=== PATIENT | female | born 1990 | race Caucasian/White ===

== ENCOUNTER 2016-02-28 15:02 | Outpatient (CLI) | payer OTHER | END 2016-02-28 15:03 | disposition home or self-care (01) | DX: Z36 Encounter for antenatal screening of mother (principal) ==

== ENCOUNTER 2016-03-19 12:25 | Outpatient (CLI) | payer OTHER | END 2016-03-19 12:26 | disposition home or self-care (01) | DX: Z34.82 Encounter for supervision of other normal pregnancy, second trimester (principal) ==

== ENCOUNTER 2016-05-02 10:15 | Outpatient (CLI) | payer OTHER | END 2016-05-02 10:16 | disposition home or self-care (01) | DX: Z36 Encounter for antenatal screening of mother (principal) ==

== ENCOUNTER 2016-07-08 16:49 | Outpatient (CLI) | payer OTHER | END 2016-07-08 16:50 | disposition home or self-care (01) | LOC: LAB.R 16:49 | PROVIDERS: ATTEND Obstetrics & Gynecology | DX: Z36 Encounter for antenatal screening of mother (principal) | CPT/HCPCS: 87081 ==

== ENCOUNTER 2016-07-28 11:35 | Outpatient (CLI) | payer OTHER ==
[2016-07-28 12:16] LABS: BASOPHILS % (AUTO) 0.3 %; EOSINOPHILS # (AUTO) 0.1 10^3/uL (0.0-0.7); EOSINOPHILS % (AUTO) 0.4 %; HCT - HEMATOCRIT 33.5 % (37.0-47.0); HGB - HEMOGLOBIN 11.5 g/dL (12.0-16.0); LYMPHOCYTES # (AUTO) 1.4 10^3/uL (1.5-3.5); LYMPHOCYTES % (AUTO) 12.4 %; MEAN CORPUSCULAR HEMOGLOBIN 30.9 pg (27.0-31.0); MEAN CORPUSCULAR HGB CONC 34.4 g/dL (32.0-36.0); MEAN PLATELET VOLUME 10.4 fL (7.9-10.8); MONOCYTES # (AUTO) 0.5 10^3/uL (0.0-1.0); MONOCYTES % (AUTO) 4.1 %; NEUTROPHILS # (AUTO) 9.6 10^3/uL (1.5-6.6); NEUTROPHILS % (AUTO) 82.8 %; NUCLEATED RED BLOOD CELLS AUTO 0.1 /100WBC; RED BLOOD COUNT 3.72 10^6/uL (4.20-5.40); RED CELL DISTRIBUTION WIDTH 15.1 % (12.0-15.0); UNCORRECTED WHITE BLOOD COUNT 11.6 x10^3/uL; WHITE BLOOD COUNT 11.6 x10^3/uL (4.8-10.8)
[2016-07-28 12:24] LABS: CREATININE 0.4 mg/dL (0.4-1.0)
[2016-07-28 12:28] LABS: URIC ACID 4.5 mg/dL (2.6-7.2)
[2016-07-28 13:11] VITALS: BP 118/66
== END 2016-07-28 13:40 | disposition home or self-care (01) ==
LOC: WFO 11:35 → OB 11:42 → WFO 13:40
PROVIDERS: ATTEND Obstetrics & Gynecology
DX: Z34.03 Encounter for supervision of normal first pregnancy, third trimester (principal)
CPT/HCPCS: 36415; 59025; 82565; 82570; 83615; 84156; 84450; 84550; 85025

== ENCOUNTER 2016-08-07 00:21 | Inpatient (IN) | payer OTHER ==
[2016-08-07 03:03] VITALS: BP 134/70
[2016-08-07] MEDS ORDERED: LACTATED RINGERS 1,000 ML IV SCH (03:15)
[2016-08-07] MEDS ORDERED: ONDANSETRON 4 MG/2 ML VIAL IVP PRN (03:15)
[2016-08-07] MEDS ORDERED: SODIUM CHLORIDE FLUSH 0.9% 10 ML SYRINGE IVP PRN (03:15)
[2016-08-07] MEDS ORDERED: fentaNYL 100 MCG/2 ML VIAL IVP PRN (03:15)
[2016-08-07 03:51] LABS: BILIRUBIN,URINE NEGATIVE (NEGATIVE); PH,URINE 6.5 PH (5.0-7.5)
[2016-08-07 03:54] LABS: UA w/ MICROSCOPIC CHARGE YES
[2016-08-07 03:58] LABS: BASOPHILS % (AUTO) 0.1 %; EOSINOPHILS % (AUTO) 0.1 %; HCT - HEMATOCRIT 33.7 % (37.0-47.0); HGB - HEMOGLOBIN 11.5 g/dL (12.0-16.0); LYMPHOCYTES # (AUTO) 1.2 10^3/uL (1.5-3.5); LYMPHOCYTES % (AUTO) 9.6 %; MEAN CORPUSCULAR HEMOGLOBIN 31.1 pg (27.0-31.0); MEAN CORPUSCULAR HGB CONC 34.3 g/dL (32.0-36.0); MEAN CORPUSCULAR VOLUME 90.7 fL (81.0-99.0); MEAN PLATELET VOLUME 10.5 fL (7.9-10.8); MONOCYTES # (AUTO) 0.4 10^3/uL (0.0-1.0); MONOCYTES % (AUTO) 3.3 %; NEUTROPHILS # (AUTO) 10.8 10^3/uL (1.5-6.6); NEUTROPHILS % (AUTO) 86.9 %; RED BLOOD COUNT 3.71 10^6/uL (4.20-5.40); RED CELL DISTRIBUTION WIDTH 14.9 % (12.0-15.0); UNCORRECTED WHITE BLOOD COUNT 12.4 x10^3/uL; WHITE BLOOD COUNT 12.4 x10^3/uL (4.8-10.8)
[2016-08-07 04:00] LABS: UR CULTURE IF IND NOT INDICATED; WBC,URINE 0-3 /HPF (0-5)
[2016-08-07] MEDS ORDERED: OXYTOCIN/LACTATED RINGERS 250 ML IV SCH (04:00)
[2016-08-07 04:07] LABS: ALBUMIN/GLOBULIN RATIO 0.9 (1.0-2.2); BILIRUBIN,TOTAL 0.2 mg/dL (0.2-1.0); CALCIUM 8.6 mg/dL (8.5-10.3); CREATININE 0.8 mg/dL (0.4-1.0); TOTAL PROTEIN 6.4 g/dL (6.7-8.2); URIC ACID 5.6 mg/dL (2.6-7.2)
--- NOTE | 2016-08-07 07:19 | HISTORY & PHYSICAL EXAMINATION ---
Admit History - Instructions [place]/Slash: -Left hand click circles element as positive or present. -Right hand click slashes element as negative or not present. - Visit Reason Visit Reason: Contractions (Pt C/O contractions q 3 min on admission, noted RUQ pain radiating to the back, also substernal pain. vandana MACKEY or scotoma.) - : 1 Parity: 0 Care: positive: [facility] (14 visits started at 9 weeks. Rubella nonimmmune. GBS negative, 50 gm 119) Smoking Status: Former smoker - Mother's Labs Mother's Blood Type: positive: A Mother's RH: positive: Positive GBS: positive: Group B Step Negative Rubella Status: positive: Non-immune Meds/Allgy - Allergies Allergies/Adverse Reactions: Allergies Allergy/AdvReac Type Severity Reaction Status Date / Time No Known Drug Allergies Allergy Verified 04/29/16 15:36 Physical - Abdominal Exam Vital Signs: Temp Pulse Resp BP Pulse Ox 36.8 C 73 14 134/70 H 100 08/07/16 02:40 08/07/16 02:40 08/07/16 02:40 08/07/16 02:40 08/07/16 02:40 Contraction Frequency (min/apart): q3-5 Contraction Intensity: positive: Moderate to strong Uterine Resting Tone: positive: Soft - Monitoring Heart Rate Baseline: 130 Strip Review: positive: Category I - Presentation Presentation: positive: Vertex - Vaginal Exam Dilation (in cm): 2.5 Effacement (%): 100 - Speculum Exam Speculum Exam Performed: positive: No - Other Notes Labor Progress Note/Additional Text: Contractions have spaced out with time. will ambulate consider pitocin. lamaze for pain control
--- NOTE | 2016-08-07 08:19 | PROVIDER PROGRESS NOTE ---
Labor Progress Note - Instructions [place]/Slash: -Left hand click circles element as positive or present. -Right hand click slashes element as negative or not present. - Vaginal Exam Dilation (in cm): 1 Effacement (%): 50% Station: positive: 1 Cervical Position: positive: Midposition - Labor Progress Note Labor Progress Note/Additional Text: not progresssing. discussed options. Home, tatum, cervidel. Pt wants discuss with spouce
--- NOTE | 2016-08-07 11:02 | PROVIDER PROGRESS NOTE ---
Labor Progress Note - Instructions [place]/Slash: -Left hand click circles element as positive or present. -Right hand click slashes element as negative or not present. - Uterine Monitoring Uterine Monitoring Mode: positive: External toco Contraction Frequency (min/apart): 5 Contraction Intensity: positive: Mild to moderate - Monitoring Monitor Mode: positive: External ultrasound Heart Rate Baseline: 130 Heart Rate Variability: positive: Moderate (6-25 bmp) Accelerations: positive: Present, 15x15 Decelerations: positive: None Strip Review: positive: Category I - Vaginal Exam Dilation (in cm): 1 Effacement (%): 50% Station: positive: -1 Cervical Position: positive: Midposition - Labor Progress Note Labor Progress Note/Additional Text: Cervix is unchanged. discussed options with pt and her . BP normal, Labs normal, reactive NST. Reviewed FM, SROM, Labor, MACKEY, [place]. Keep clinic appt.
--- NOTE | 2016-08-08 15:09 | HISTORY & PHYSICAL EXAMINATION ---
DATE OF ADMISSION: 08/07/2016 The patient reports right upper quadrant pain beginning this morning that has not resolved with Tylenol. She reports no headache or visual changes, and had been evaluated yesterday by Dr. Jean Baptiste. GENERAL: The patient lying comfortably in bed, in attendance. VITAL SIGNS: Temperature 97.5, pulse 91, blood pressure 116/76, respirations 18. HEENT: EOMI. Supple neck. No icterus. ABDOMEN: Soft, nontender, gravid. Mild right upper quadrant tenderness noted. Uterus vertex presentation. External monitor: No contractions are recorded, baseline 130 with accels and moderate variability. EXTERNAL GENITALIA: No lesions. VAGINA: No blood, discharge or fluid. LABORATORY: Show elevated urine creatinine protein ratio at 0.3. Urine essentially normal. Uric acid elevated for 5.9, AST 20, normal, LDH 160, normal. Hemoglobin 11.0, white count 11.5, platelets 169. ASSESSMENT: This is a term with RUQ pain and borderline P/Cr suggestive of evolving preeclampsia, though her blood pressure is not elevated. Given that she is 40 weeks and inducible cervix, advisability of induction was discussed. The patient is resistant to any intervention and wants more time to consider her options. Possible problems with preeclampsia/PIH were discussed such as seizure, liver involvement and even possible rupture. PLAN: Allow the patient and to determine their course of action. If necessary, will have a formal session of informed refusal for care. Addendum: She has chosen to go home and return in am for re evaluation and possible induction. Brochures on PIH & Preeclampsia given and reviewed. JOB #: [id number] EXT JOB #:[id number] MOLLY
== END 2016-08-07 11:10 | disposition home or self-care (01) | DRG 781 ==
LOC: WFO 00:21 → OB 00:22 → WFO 03:10 → OB 03:11
PROVIDERS: ADMIT Obstetrics & Gynecology; ATTEND Obstetrics & Gynecology
DX: O62.2 Other uterine inertia (principal); O14.93 Unspecified pre-eclampsia, third trimester; Z3A.40 40 weeks gestation of pregnancy
CPT/HCPCS: 36415; 80053; 81001; 81003; 83615; 84450; 84550; 85025; 87086; 99213

== ENCOUNTER 2016-08-08 09:17 | Outpatient (CLI) | payer OTHER ==
[2016-08-08 10:33] LABS: BASOPHILS # (AUTO) 0.1 10^3/uL (0.0-0.1); BASOPHILS % (AUTO) 0.5 %; EOSINOPHILS % (AUTO) 0.2 %; HCT - HEMATOCRIT 32.7 % (37.0-47.0); LYMPHOCYTES # (AUTO) 1.4 10^3/uL (1.5-3.5); LYMPHOCYTES % (AUTO) 12.5 %; MEAN CORPUSCULAR HEMOGLOBIN 30.4 pg (27.0-31.0); MEAN CORPUSCULAR HGB CONC 33.6 g/dL (32.0-36.0); MEAN CORPUSCULAR VOLUME 90.7 fL (81.0-99.0); MEAN PLATELET VOLUME 10.1 fL (7.9-10.8); MONOCYTES # (AUTO) 0.4 10^3/uL (0.0-1.0); MONOCYTES % (AUTO) 3.8 %; NEUTROPHILS # (AUTO) 9.4 10^3/uL (1.5-6.6); NUCLEATED RED BLOOD CELLS AUTO 0.1 /100WBC; RED BLOOD COUNT 3.61 10^6/uL (4.20-5.40); RED CELL DISTRIBUTION WIDTH 15.1 % (12.0-15.0); UNCORRECTED WHITE BLOOD COUNT 11.3 x10^3/uL; WHITE BLOOD COUNT 11.3 x10^3/uL (4.8-10.8)
[2016-08-08 10:47] LABS: URIC ACID 5.9 mg/dL (2.6-7.2)
[2016-08-08 11:26] LABS: BILIRUBIN,URINE NEGATIVE (NEGATIVE); PH,URINE 6.5 PH (5.0-7.5)
[2016-08-08 11:29] LABS: UA CHARGE (STRIP ONLY) YES; UR CULTURE IF IND NOT INDICATED
[2016-08-08 15:19] VITALS: BP 119/74
== END 2016-08-08 14:00 | disposition home or self-care (01) ==
LOC: WFO 09:17 → OB 09:19 → WFO 14:00
PROVIDERS: ATTEND Obstetrics & Gynecology
DX: O99.89 Other specified diseases and conditions complicating pregnancy, childbirth and the puerperium (principal); R10.11 Right upper quadrant pain; Z3A.40 40 weeks gestation of pregnancy
CPT/HCPCS: 36415; 81001; 81003; 82570; 83615; 84156; 84450; 84550; 85025; 87086; 99214

== ENCOUNTER 2016-08-09 09:31 | Outpatient (CLI) | payer OTHER ==
[2016-08-09 10:42] VITALS: BP 114/70
== END 2016-08-09 11:15 | disposition home or self-care (01) ==
LOC: WFO 09:31
PROVIDERS: ATTEND Obstetrics & Gynecology
DX: Z34.03 Encounter for supervision of normal first pregnancy, third trimester (principal)
CPT/HCPCS: 59025; 82570; 84156

== ENCOUNTER 2016-08-11 08:56 | Outpatient (CLI) | payer OTHER ==
[2016-08-11 09:29] VITALS: BP 119/73
== END 2016-08-11 09:45 | disposition home or self-care (01) ==
LOC: WFO 08:56 → OB 08:58 → WFO 09:45
PROVIDERS: ATTEND Obstetrics & Gynecology
DX: O99.89 Other specified diseases and conditions complicating pregnancy, childbirth and the puerperium (principal); R10.11 Right upper quadrant pain; Z3A.40 40 weeks gestation of pregnancy
CPT/HCPCS: 59025

== ENCOUNTER 2016-08-13 08:57 | Outpatient (CLI) | payer OTHER ==
[2016-08-13 09:19] VITALS: BP 126/65
== END 2016-08-13 09:35 | disposition home or self-care (01) ==
LOC: WFO 08:57 → OB 08:59 → WFO 09:35
PROVIDERS: ATTEND Obstetrics & Gynecology
DX: O48.0 Post-term pregnancy (principal); Z3A.41 41 weeks gestation of pregnancy
CPT/HCPCS: 59025

== ENCOUNTER 2016-08-15 07:30 | Inpatient (IN) | payer OTHER ==
[2016-08-15] MEDS ORDERED: SODIUM CHLORIDE FLUSH 0.9% 10 ML SYRINGE IVP PRN (20:50)
[2016-08-15] MEDS ORDERED: ONDANSETRON 4 MG/2 ML VIAL IVP PRN (20:50)
[2016-08-15] MEDS ORDERED: fentaNYL 100 MCG/2 ML VIAL IVP PRN (20:50)
[2016-08-15] MEDS ORDERED: DINOPROSTONE 10 MG SUPP VG ONE (20:53)
--- NOTE | 2016-08-15 20:56 | HISTORY & PHYSICAL EXAMINATION ---
Admit History - Instructions [place]/Slash: -Left hand click circles element as positive or present. -Right hand click slashes element as negative or not present. - : 1 Parity: 0 Premature: 0 Ectopic: 0 : 0 Care: positive: [facility] Risk/History: positive: None Complications This : positive: None Smoking Status: Never smoker - Mother's Labs Mother's Blood Type: positive: A Mother's RH: positive: Positive GBS: positive: Group B Step Negative Rubella Status: positive: Immune Meds/Allgy - Allergies Allergies/Adverse Reactions: Allergies Allergy/AdvReac Type Severity Reaction Status Date / Time No Known Drug Allergies Allergy Verified 04/29/16 15:36 Physical - Abdominal Exam Vital Signs: VS 36.7 BP 125/73 P74 Sat 100% Contraction Frequency (min/apart): infrequent Uterine Resting Tone: positive: Soft - Monitoring Heart Rate Baseline: 145 Strip Review: positive: Category I - Presentation Presentation: positive: Vertex - Vaginal Exam Membranes: positive: Membranes intact Dilation (in cm): 2 Effacement (%): 80% Station: positive: -3 Cervical Position: positive: Midposition - Speculum Exam Speculum Exam Performed: positive: No Findings: positive: Gross leak Plan for Labor - Plan For Labor Plan for Labor: Cervical ripening with cervidel. Pit in the AM
[2016-08-15 20:59] LABS: BASOPHILS % (AUTO) 0.4 %; EOSINOPHILS % (AUTO) 0.4 %; HCT - HEMATOCRIT 33.7 % (37.0-47.0); HGB - HEMOGLOBIN 11.3 g/dL (12.0-16.0); LYMPHOCYTES # (AUTO) 1.5 10^3/uL (1.5-3.5); LYMPHOCYTES % (AUTO) 13.6 %; MEAN CORPUSCULAR HEMOGLOBIN 30.7 pg (27.0-31.0); MEAN CORPUSCULAR HGB CONC 33.4 g/dL (32.0-36.0); MEAN CORPUSCULAR VOLUME 91.8 fL (81.0-99.0); MEAN PLATELET VOLUME 10.9 fL (7.9-10.8); MONOCYTES # (AUTO) 0.5 10^3/uL (0.0-1.0); MONOCYTES % (AUTO) 4.8 %; NEUTROPHILS # (AUTO) 8.9 10^3/uL (1.5-6.6); NEUTROPHILS % (AUTO) 80.8 %; NUCLEATED RED BLOOD CELLS AUTO 0.1 /100WBC; RED BLOOD COUNT 3.67 10^6/uL (4.20-5.40); RED CELL DISTRIBUTION WIDTH 15.2 % (12.0-15.0)
[2016-08-15] MEDS: LACTATED RINGERS 1,000 ML IV SCH (21:03)
[2016-08-15] MEDS ORDERED: DINOPROSTONE 10 MG SUPP VG SCH (21:06)
[2016-08-16] MEDS: LACTATED RINGERS 1,000 ML IV SCH ×4 (04:53→21:11)
[2016-08-16] MEDS ORDERED: fent/BUPIV 2 MCG/0.125% 250 ML EP ONE (08:41)
[2016-08-16] MEDS ORDERED: NALBUPHINE 20 MG/ML AMP IVP PRN (10:01)
[2016-08-16] MEDS ORDERED: LACTATED RINGERS 500 ML IV ONE (10:01)
[2016-08-16] MEDS ORDERED: fent/BUPIV 2 MCG/0.125% 250 ML EP PRN ×2 (10:01→17:14)
[2016-08-16] MEDS ORDERED: ONDANSETRON 4 MG/2 ML VIAL IVP PRN (10:01)
[2016-08-16] MEDS ORDERED: METOCLOPRAMIDE 10 MG/2 ML VIAL IVP PRN (10:01)
[2016-08-16] MEDS ORDERED: NALOXONE 0.4 MG/ML VIAL IVP PRN (10:01)
[2016-08-16] MEDS ORDERED: diphenhydrAMINE INJ 50 MG/ML VIAL IVP PRN (10:01)
[2016-08-16] MEDS ORDERED: ePHEDrine 50 MG/ML AMP IVP PRN (10:01)
[2016-08-16] MEDS ORDERED: LIDOCAINE 1% 50 ML MDV ONE (10:03)
[2016-08-16] MEDS ORDERED: MINERAL OIL LIGHT 10 ML MC ONE (10:03)
[2016-08-16] MEDS ORDERED: OXYTOCIN/LACTATED RINGERS 250 ML IV ONE (10:03)
--- NOTE | 2016-08-16 15:20 | PROVIDER PROGRESS NOTE ---
Labor Progress Note - Instructions [place]/Slash: -Left hand click circles element as positive or present. -Right hand click slashes element as negative or not present. - Uterine Monitoring Uterine Monitoring Mode: positive: External toco Contraction Frequency (min/apart): 2-5 Contraction Intensity: positive: Moderate to strong Uterine Resting Tone: positive: Soft - Monitoring Monitor Mode: positive: External ultrasound Heart Rate Baseline: 150 Heart Rate Variability: positive: Moderate (6-25 bmp) Accelerations: positive: Present, 15x15 Decelerations: positive: None Strip Review: positive: Category I - Vaginal Exam Dilation (in cm): 6 Effacement (%): 100 Station: positive: 0 Cervical Position: positive: Anterior (slow progress with excellent pain control. will augmet with pitocin)
[2016-08-16] MEDS: SODIUM CHLORIDE FLUSH 0.9% 10 ML SYRINGE IVP SCH ×3 (15:50→21:37)
[2016-08-16] MEDS ORDERED: OXYTOCIN/LACTATED RINGERS 250 ML IV SCH (16:00)
[2016-08-16] MEDS: ONDANSETRON 4 MG/2 ML VIAL IVP PRN (16:06)
--- NOTE | 2016-08-16 18:09 | PROVIDER PROGRESS NOTE ---
Labor Progress Note - Instructions [place]/Slash: -Left hand click circles element as positive or present. -Right hand click slashes element as negative or not present. - Uterine Monitoring Uterine Monitoring Mode: positive: External toco Contraction Frequency (min/apart): 2-5 Contraction Intensity: positive: Strong Uterine Resting Tone: positive: Soft - Monitoring Monitor Mode: positive: External ultrasound Heart Rate Baseline: 150 Heart Rate Variability: positive: Moderate (6-25 bmp) Accelerations: positive: Present, 15x15 (Slow progress. Pt is afbrile. Bladder drained, Pit aug, good paion control. will increase pit.)
--- NOTE | 2016-08-16 21:58 | PROVIDER PROGRESS NOTE ---
Labor Progress Note - Instructions [place]/Slash: -Left hand click circles element as positive or present. -Right hand click slashes element as negative or not present. - Uterine Monitoring Uterine Monitoring Mode: positive: External toco Contraction Frequency (min/apart): 2-5 Contraction Intensity: positive: Strong Uterine Resting Tone: positive: Soft - Monitoring Monitor Mode: positive: External ultrasound Heart Rate Baseline: 140 Heart Rate Variability: positive: Moderate (6-25 bmp) Accelerations: positive: Present, 15x15 - Vaginal Exam Dilation (in cm): 7 Effacement (%): 100 Station: positive: 1 Cervical Position: positive: Anterior (Pt has stalled at 7 cm. tatum in draining the bladder, excellent pain control notes low back pain. p tis on 7 units of pitocin IUPC placed. will increase pitocin.)
[2016-08-16] MEDS ORDERED: LIDOCAINE MPF 2%-EPI 1:200000 20 ML VIAL SUBQ ONE (22:03)
[2016-08-16] MEDS ORDERED: ROPIVACAINE 0.2% PF 20 ML AMPULE SUBQ ONE (22:03)
[2016-08-16] MEDS ORDERED: BUPIVACAINE 0.25% PF 10 ML VIAL SUBQ ONE (22:03)
[2016-08-16] MEDS ORDERED: fentaNYL 100 MCG/2 ML VIAL ONE (22:32)
--- NOTE | 2016-08-16 23:34 | PROVIDER PROGRESS NOTE ---
Labor Progress Note - Instructions [place]/Slash: -Left hand click circles element as positive or present. -Right hand click slashes element as negative or not present. - Uterine Monitoring Uterine Monitoring Mode: positive: IUPC : 2-3 Contraction Intensity: positive: Strong Uterine Resting Tone: positive: Soft (155 MVU) - Monitoring Monitor Mode: positive: External ultrasound Heart Rate Baseline: 140 Heart Rate Variability: positive: Moderate (6-25 bmp) Accelerations: positive: Present, 15x15 Decelerations: positive: None Strip Review: positive: Category I - Vaginal Exam Dilation (in cm): 7 Effacement (%): 100 Station: positive: 1 Cervical Position: positive: Anterior - Labor Progress Note Labor Progress Note/Additional Text: Pt is stalling. Pitocin at 8 units. 155 MVU. will increase by 2 units to improve strength
--- NOTE | 2016-08-17 01:27 | PROVIDER PROGRESS NOTE ---
Labor Progress Note - Instructions [place]/Slash: -Left hand click circles element as positive or present. -Right hand click slashes element as negative or not present. - Uterine Monitoring Uterine Monitoring Mode: positive: IUPC Contraction Frequency (min/apart): 2-3 Contraction Intensity: positive: Strong (250 MVU/10 min) Uterine Resting Tone: positive: Soft - Monitoring Monitor Mode: positive: External ultrasound Heart Rate Baseline: 140 Heart Rate Variability: positive: Moderate (6-25 bmp) Accelerations: positive: Present, 15x15 (spontanious and wiht scalp stim) Decelerations: positive: None Strip Review: positive: Category I - Vaginal Exam Dilation (in cm): 8 Effacement (%): 100 Station: positive: 1 Cervical Position: positive: Anterior - Labor Progress Note Labor Progress Note/Additional Text: P tis now having satisfactory contractions but pain control is poor. Anaesthesia is coming to redo block.
[2016-08-17] MEDS: ONDANSETRON 4 MG/2 ML VIAL IVP PRN (01:50)
[2016-08-17] MEDS: LACTATED RINGERS 1,000 ML IV SCH ×2 (02:17→04:03)
[2016-08-17] MEDS ORDERED: fentaNYL 100 MCG/2 ML VIAL ONE (03:03)
[2016-08-17] MEDS ORDERED: ceFAZolin 2 GM/50 ML 0 ML IV ONE (03:21)
[2016-08-17] MEDS ORDERED: ceFAZolin 1 GM VIAL ONE (03:21)
[2016-08-17] MEDS ORDERED: CITRIC ACID/SODIUM CITRATE 15 ML UDC PO ONE (03:22)
[2016-08-17] MEDS ORDERED: ceFAZolin 2 GM/50 ML 50 ML IV ONE (03:30)
--- NOTE | 2016-08-17 03:30 | PROVIDER PROGRESS NOTE ---
Labor Progress Note - Instructions [place]/Slash: -Left hand click circles element as positive or present. -Right hand click slashes element as negative or not present. - Uterine Monitoring Uterine Monitoring Mode: positive: IUPC Contraction Frequency (min/apart): 3 Contraction Intensity: positive: Strong (MVU 150) Uterine Resting Tone: positive: Soft - Monitoring Monitor Mode: positive: External ultrasound Heart Rate Baseline: 135 Heart Rate Variability: positive: Moderate (6-25 bmp) Accelerations: positive: Present, 15x15 Decelerations: positive: None Strip Review: positive: Category I - Vaginal Exam Dilation (in cm): 8 Effacement (%): swelling Station: positive: 1 Cervical Position: positive: Anterior - Labor Progress Note Labor Progress Note/Additional Text: Epidural not working 2 attempts to replace unsuccessful with pain control. head with molding. optimized process. Discussed with pt and spouse decision to precede with PLTC/S. R&B QAA.
[2016-08-17] MEDS ORDERED: LACTATED RINGERS 1,000 ML IV ONE ×3 (04:10→05:37)
[2016-08-17] MEDS ORDERED: OXYTOCIN 10 UNIT/ML VIAL IV ONE (04:53)
[2016-08-17] MEDS ORDERED: METOCLOPRAMIDE 10 MG TABLET PO ONE (04:53)
[2016-08-17] MEDS ORDERED: KETOROLAC 30 MG/ML VIAL IVP ONE (04:53)
[2016-08-17] MEDS ORDERED: ACETAMINOPHEN 1,000 MG/100 ML VIAL IV ONE (04:53)
--- NOTE | 2016-08-17 05:56 | OPERATIVE REPORT ---
Operative Report - General Admit Date: 08/15/16 Procedure Date: 08/17/16 Planned Procedure: Primary Low transverse C/S Pre-Op Diagnosis: Arrest of dilitation and decent Post Op Diagnosis: Macrosomic infant 10lb 1oz ROP. Bandolear cord - Procedure Note Primary Surgeon: Jonatan Secondary Surgeon: Asa Anesthesia Provider: Vania Anesthesia Technique: Spinal Estimated Blood Loss (in cc): 1,200 Complications: live male apga 8/9
[2016-08-17] MEDS ORDERED: diphenhydrAMINE INJ 50 MG/ML VIAL IVP PRN (06:08)
--- NOTE | 2016-08-17 06:16 | DELIVERY NOTE ---
Delivery Note - Instructions [place]/Slash: -Left hand click circles element as positive or present. -Right hand click slashes element as negative or not present. - Labor Labor: positive: Augmented by ARM, Augmented by oxytocin - Delivery Method Delivery Method: positive: Primary - Cervical Ripening Method Cervical Ripening Method: positive: Prostaglandin E2 - Presentation Presentation: positive: Vertex, ROP - right occiput posterior - Nuchal Cord Nuchal Cord: positive: None (bandolear cord) - Anesthetic Anesthetic Type: - Amniotic Fluid Description Amniotic Fluid Description: positive: Clear - Delivery Outcome Delivery Outcome: positive: Livebirth - : positive: Warmer used [place] sex: positive: Male - Cord Cord: positive: 3 vessels - Placenta Placenta: positive: Intact - Estimated Blood Loss Estimated Blood Loss (in cc): 1,200
[2016-08-17] MEDS ORDERED: LACTATED RINGERS 1,000 ML IV SCH (07:00)
[2016-08-17] MEDS: DOCUSATE SODIUM 100 MG CAPSULE PO SCH ×2 (11:28→20:46)
[2016-08-17] MEDS: SODIUM CHLORIDE FLUSH 0.9% 10 ML SYRINGE IVP SCH ×4 (11:28→23:07)
[2016-08-17] MEDS: KETOROLAC 30 MG/ML VIAL IV SCH ×3 (11:28→23:01)
[2016-08-17] MEDS: ACETAMINOPHEN 500 MG TABLET PO SCH ×2 (13:27→21:26)
[2016-08-17] MEDS: oxyCODONE 5 MG TABLET PO PRN ×2 (16:57→20:45)
[2016-08-18] MEDS: oxyCODONE 5 MG TABLET PO PRN ×7 (01:13→23:51)
[2016-08-18] MEDS: ACETAMINOPHEN 500 MG TABLET PO SCH ×3 (05:18→21:02)
[2016-08-18] MEDS: IBUPROFEN 800 MG TABLET PO SCH ×4 (05:53→23:51)
[2016-08-18 05:54] LABS: BASOPHILS % (AUTO) 0.1 %; EOSINOPHILS % (AUTO) 0.4 %; HCT - HEMATOCRIT 25.7 % (37.0-47.0); HGB - HEMOGLOBIN 8.6 g/dL (12.0-16.0); LYMPHOCYTES # (AUTO) 1.3 10^3/uL (1.5-3.5); LYMPHOCYTES % (AUTO) 13.1 %; MEAN CORPUSCULAR HGB CONC 33.5 g/dL (32.0-36.0); MEAN CORPUSCULAR VOLUME 92.3 fL (81.0-99.0); MEAN PLATELET VOLUME 10.1 fL (7.9-10.8); MONOCYTES # (AUTO) 0.5 10^3/uL (0.0-1.0); MONOCYTES % (AUTO) 4.7 %; NEUTROPHILS # (AUTO) 8.4 10^3/uL (1.5-6.6); NEUTROPHILS % (AUTO) 81.7 %; RED BLOOD COUNT 2.79 10^6/uL (4.20-5.40); RED CELL DISTRIBUTION WIDTH 16.2 % (12.0-15.0); UNCORRECTED WHITE BLOOD COUNT 10.2 x10^3/uL; WHITE BLOOD COUNT 10.2 x10^3/uL (4.8-10.8)
--- NOTE | 2016-08-18 08:34 | OPERATIVE REPORT ---
DATE OF SURGERY: 08/17/2016 00:00:00 PREOPERATIVE DIAGNOSES 1. Term Cyesis. 2. Arrested dilatation and descent. POSTOPERATIVE DIAGNOSES 1. Term Cyesis. 2. Arrested dilatation and descent. 3. Macrosomic weighing 10 pounds 1 ounce, right occiput posterior, bandolier cord. PROCEDURE: Primary low transverse section. PROCEDURE: Primary low transverse section. SURGEON: Yariel Cheung MD PRESS MANAGER: Jayson Bray MD ANESTHESIA: Spinal; Lydia Caro MD ESTIMATED BLOOD LOSS: 1200 mL. FINDINGS: Upon entering the abdominal cavity, the infant was noted to be deep in the pelvis. The infant was noted to be right occiput posterior, clear amniotic fluid was encountered at the time of delivery. PROCEDURE: Following adequate spinal anesthesia, the patient was placed in a supine position and rolled on the right hip. At this point she was prepped and draped in the usual fashion. A timeout was performed, at which time the patient was identified as well as the procedure. A pjanensteal incision was accomplished using a #10 blade and electrocautery. The fascia was scored with a #10 blade, and the incision was carried laterally using bandage scissors. Then the fascia was grasped with Kochers and bluntly and sharply dissected free from the rectus abdominus. The diastasis was then entered utilizing hemostat, and this was carried down to the peritoneum, which was entered bluntly. The incision was carried superiorly and inferiorly. Care was taken to avoid any injury to bowel or bladder. A bladder flap was then developed using both blunt and sharp dissection. A low transverse uterine incision was accomplished using a #10 blade and bandage scissors. The head of the infant was noted to be right occiput posterior. Then the head was lifted out of the pelvis. The remainder of the infant was expressed. There was a bandolier cord noted at the time of delivery. The amniotic fluid was also noted to be clear. The cord was doubly clamped, divided, and the was handed to the nursery team that was standing by. Cord blood samples were obtained. Following this, the placenta was manually delivered. The uterus was exteriorized, wrapped in moist lap, cleansed the internal portion with a dry lap. The incision was then closed using running locking suture of #0 Vicryl with an imbricating layer of #0 Vicryl. Good hemostasis was observed at this point. A rolled moist lap was then placed over the incision , the uterus was tipped forward, and the cul-de-sac was irrigated clear of any clots. The uterus was then delivered back into the abdominal cavity, and the gutters were likewise irrigated. The incision itself was inspected; no bleeding was noted. At this point, the peritoneum was closed using 2-0 Vicryl and then the rectus reapproximated with 2-0 Vicryl. The fascia was closed utilizing 0 PDS in a running suture. The subcutaneous tissue was closed utilizing interrupted sutures of 2-0 Vicryl. The incision itself was closed using Monocryl subcuticular, then Mastisol with Steri-Strips was applied. A wound VAC was then applied on top of this. Good suction was observed at this time. The uterus was then expressed for any further clots, and none were noted. At this point the procedure was terminated. The patient was taken to recovery in stable condition. [id number] counts were correct. JOB #: [id number] EXT JOB #:[id number] MOLLY
--- NOTE | 2016-08-18 08:38 | PROVIDER PROGRESS NOTE ---
Subjective - General Admit Date: 08/15/16 Procedure Date: 08/17/16 Post Op Days: 1 Procedure Performed: P LTC/S - Review of Systems Wound/Incisions: positive: Dressing dry and intact (Wound vac functioning) General: positive: No symptoms (Pain 1-3/10), Night sweats Pulmonary: positive: No symptoms Gastrointestinal: positive: No symptoms, Flatus. negative: Nausea, Vomiting Genitourinary: positive: No symptoms. negative: Retention Objective - Patient Data Reviewed Vital Signs: Yes Vital Signs: Vital Signs x48h Temp Pulse Resp Pulse Ox 08/18/16 04:40 36.7 C 71 16 108 H Weight: Weight 08/16/16 08/17/16 08/18/16 23:59 23:59 23:59 Weight (kg) 106.141 kg Intake & Output: Intake and Output Totals x24h 08/16/16 08/17/16 08/18/16 23:59 23:59 23:59 Intake Total 3598 500 Output Total 1050 1350 900 Balance 8497 -850 900 - Lab Results Lab Results: 08/18/16 05:35 Other Lab Results: Lab Results x24hrs 08/18/16 Range/Units 05:35 WBC 10.2 (4.8-10.8) x10^3/uL RBC 2.79 L (4.20-5.40) 10^6/uL Hgb 8.6 L (12.0-16.0) g/dL Hct 25.7 L (37.0-47.0) % MCV 92.3 (81.0-99.0) fL MCH 31.0 (27.0-31.0) pg MCHC 33.5 (32.0-36.0) g/dL RDW 16.2 H (12.0-15.0) % Plt Count 106 L (130-450) 10^3/uL MPV 10.1 (7.9-10.8) fL Neut # 8.4 H (1.5-6.6) 10^3/uL Lymph # 1.3 L (1.5-3.5) 10^3/uL [place] # 0.5 (0.0-1.0) 10^3/uL Eos # 0.0 (0.0-0.7) 10^3/uL Baso # 0.0 (0.0-0.1) 10^3/uL Absolute Nucleated RBC 0.00 x10^3/uL Nucleated RBCs 0.0 /100WBC - Current Medications Current Medications: Current Medications Generic Name Dose Route Start Last Admin Trade Name Freq PRN Reason Stop Dose Admin Acetaminophen 1,000 mg 08/17/16 07:00 08/18/16 05:18 Tylenol PO 1,000 mg Q8H GLEN Administration Docusate Sodium 100 mg 08/17/16 09:00 08/17/16 20:46 Colace 100mg Capsule PO 100 mg BID GLEN Administration Fentanyl 50 mcg 08/15/16 20:50 08/16/16 07:09 Fentanyl IVP 50 mcg Q1H PRN Administration PAIN Oxytocin/Lactated Ringer's 250 mls @ 1 mls/hr 08/16/16 16:00 08/16/16 18:55 Pitocin/Lactated Ringers IV 4 milliunit/min TITR GLEN Titration 1 MILLIUNIT/MIN Ibuprofen 800 mg 08/18/16 06:00 08/18/16 05:53 Motrin PO 800 mg Q6H GLEN Administration Ondansetron HCl 4 mg 08/16/16 15:36 08/17/16 01:50 Zofran Inj IVP 4 mg Q4HR PRN Administration Nausea / Vomiting Oxycodone HCl 5 mg 08/17/16 06:08 08/18/16 05:15 Roxicodone PO 5 mg Q4HR PRN Administration PAIN Sodium Chloride 10 ml 08/15/16 20:50 08/17/16 01:50 Normal Saline Flush 0.9% IVP 10 ml PRN PRN Administration NEEDED PER PROVIDER ORDERS Sodium Chloride 10 ml 08/15/16 22:00 08/17/16 23:07 Normal Saline Flush 0.9% IVP 10 ml Q8HR GLEN Administration - Physical Exam Wound/Incisions: positive: Dressing dry and intact Eyes Bilateral: positive: Normal inspection, PERRL Respiratory: positive: Chest non-tender, No respiratory distress, Breath sounds nml Cardiovascular: positive: Regular rate & rhythm, No murmur, No gallop Abdomen: positive: Non-tender, Nml bowel sounds, Mass (U-1) Extremities: negative: Calf tenderness, Andrae's sign/cords Impression/Plan - Problem List Problem List: Pt is doing, voiding regular diet
[2016-08-18] MEDS: DOCUSATE SODIUM 100 MG CAPSULE PO SCH ×2 (09:15→21:02)
[2016-08-19] MEDS: oxyCODONE 5 MG TABLET PO PRN ×4 (04:06→16:25)
[2016-08-19] MEDS: ACETAMINOPHEN 500 MG TABLET PO SCH ×2 (05:39→13:05)
[2016-08-19] MEDS: IBUPROFEN 800 MG TABLET PO SCH ×3 (05:39→17:31)
[2016-08-19] MEDS: DOCUSATE SODIUM 100 MG CAPSULE PO SCH (08:17)
--- NOTE | 2016-08-19 10:16 | PROVIDER PROGRESS NOTE ---
Subjective - Prog Note Date Prog Note Date: 08/19/16 Prog Note Time: 10:13 - Subjective Pt reports feeling: Improved Subjective: Patient in bed, holding baby. at bedside. Baby latching well. Ambulating and tolerating a regular diet. Normal lochia. Desires to go home. Current Medications - Current Medications Current Medications: Ibuprofen, acetaminophen, oxycodone Objective - Vital Signs/Intake & Output Reviewed Vital Signs: Yes Vital Signs: Vital Signs x48h Temp Pulse Resp BP Pulse Ox 08/19/16 08:03 98.2 F 74 16 129/81 H 98 08/19/16 04:09 98.1 F 68 22 111/67 100 Intake & Output: Intake & Output 08/16/16 08/17/16 08/18/16 08/19/16 23:59 23:59 23:59 23:59 Intake Total 3598 500 Output Total 1050 1350 900 Balance 6065 -663 -900 - Objective General Appearance: positive: No acute distress Eyes Bilateral: positive: Normal inspection Abdomen: positive: Non-tender (Wound vac in place and working well.) - Lab Results Fish Bones: 08/18/16 05:35 Assessment/Plan - Problem List (1) delivery delivered Impression: 25 yo S/p primary CD 08/17/2016 for failure to dilate and descend Normal recovery Discharge to home Has filled home Rx for ibuprofen, oxycodone Call tomorrow for an appointment to remove of Prevena wound vac Thursday Call for worsening fevers, chills, abdominal pain or vaginal bleeding. Discharge Plan Disposition: Home, Self Care Condition: Good Prescriptions: Docusate Sodium 250Mg Capsule [Colace 250Mg Capsule] 100 mg PO BID PRN #30 capsule PRN Reason: Constipation Ferrous Sulfate 324 mg PO DAILY #30 tablet. Ibuprofen [Motrin] 800 mg PO Q8H PRN #30 tablet PRN Reason: PAIN &/OR FEVER oxyCODONE/ACET 5/325 [Percocet 5 mg/325 mg] 1 each PO Q4-6H #20 tablet Diet: Regular Activity Restrictions: No lifting >12 lbs Shower Restrictions: No Driving Restrictions: Yes (No driving for 2 weeks) Weight Bearing: Full Weight No Smoking: If you smoke, Please STOP! Call for help.
[2016-08-19 17:43] VITALS: BP 130/81
[2016-08-19] MEDS ORDERED: HYDROCORTISONE 1% CREAM 28 GM TUBE TOP SCH ×2 (18:00)
--- NOTE | 2016-08-20 00:05 | Labor Flowsheet ---
Labor Flowsheet Datetime Report Generated by CPN: 08/20/2016 00:04 Datetime: 08/19/2016 17:41 VITAL SIGNS NBP Sys/Sally/Mean (mmHg): 130 : 81 : 92 Pulse: 84 Datetime: 08/18/2016 20:04 SpO2 (%): 99 Datetime: 08/17/2016 04:36 Stage of : Datetime: 08/17/2016 04:25 ASSESSMENT A Monitor Mode: Doppler FHR Baseline Rate : 154 Datetime: 08/17/2016 04:10 Communication Comments: OR team in hospital. To OR via bed with circulating RN and Dr. Caro. Datetime: 08/17/2016 04:04 LaborFlag: Labor Datetime: 08/17/2016 04:00 UTERINE ACTIVITY Monitor Mode: Internal Frequency (min): 2-5 Pattern: Normal: <= 5 Contractions in 10 Minutes Resting Tone IUP (mmHg): 25 Intensity IUP (mmHg): 40-60 FHR Baseline Changes: No Baseline Change Variability: Moderate 6-25 bpm Accelerations: 10X10 Decelerations: None Category: Category I PAIN Pain Scale: 10 Pain Presence: Constant Pain Location: Right Hip Pain Goal: 4 Pain Relief Measures: Epidural Given Datetime: 08/17/2016 03:25 Medication Comments: Epidural infusion stopped per Dr Caro's order. Datetime: 08/17/2016 03:15 TEACHING Instructional Method: Verbal; Written; Patient Instructed; Family/Support Person Instructed; Verbal ized Understanding Plan of Care: Plan of Care Discussed; C/S Delivery Datetime: 08/17/2016 03:14 Patient Care Comments: concentrated urine, 60ml Datetime: 08/17/2016 03:11 COMMUNICATION Communication: RN at Bedside; Provider at Bedside Provider Notified (Name): Giem Notification Reason: Status Update; Status; Labor Status; Uterine Activity; Pain Datetime: 08/17/2016 03:09 MEDICATIONS Pitocin (milliunits): Discontinued Datetime: 08/17/2016 03:05 Analgesics/Sedatives: Fentanyl (mcg) @ (Annotations: 50mcg given for 10/10 pain; no relief from epi dural; still in pain on R hip/R groin/R lower back. Dr Caro aware. ) Datetime: 08/17/2016 03:00 Duration (sec): 60-100 Pitocin Checklist: At Least 1 Acceleration of 15 bpm x 15 Seconds in 30 Minutes or Adequate Variabi lity; No More than 1 Late Deceleration Occurred in Past 30 Minutes; No More than 2 Variable Decelerat ions > 60 Seconds in Duration and decreasing >60 bpm in 30 minutes; No More than 5 Uterine Contractio ns in 10 Minutes for any 20 Minute Interval; IUPC Resting Tone less than 25 mmHg VAGINAL EXAM Dilatation (cm): 7.0 (Annotations: 2cm on L side, 1cm on R side, molding, not well applied cervix. ) Effacement (%): 90 (Annotations: Some edema on mom's L side of cervix. ) Station: 0 Exam by: RNRoselyn Mcclain Anesthesia Interview: E Anesthesia Comments: Still c/o unretractable pain on R lower side of abdomen, hip, back. Dr Caro aw are. Legs are heavy; unable to move self from side to side or up in bed. Datetime: 08/17/2016 02:50 Temperature (C): 36.9 Datetime: 08/17/2016 02:43 Contraction Comments: IUPC flushed Datetime: 08/17/2016 02:39 Patient Position/Activity: Left Lateral Datetime: 08/17/2016 02:38 Vaginal Exam Comments: molding Datetime: 08/17/2016 02:27 Epidural Positioning: Sitting Epidural Procedure: Test Dose Datetime: 08/17/2016 02:00 Respirations: 24 Datetime: 08/17/2016 01:46 Antiemetics/Antacids: Zofran (mg) @ 4 Datetime: 08/17/2016 01:18 Pain Assessment Comments: Dr Caro called and requested to come see pt and evaluate epidural. Datetime: 08/17/2016 01:15 Pain Coping: Requesting Pain Medication or Epidural; Crying Comfort Measures: Breathing/Relaxation; Coaching; Family Support Datetime: 08/17/2016 01:00 [place] Units (mmHg): 212 ANESTHESIA Anesthesia Plans: Epidural Anesthesia Level Check: T8- Ribs Datetime: 08/17/2016 00:00 Pain Type: Pressure Datetime: 08/16/2016 23:31 MONTEVIDEO UNITS (Computed) Contractions in Ten Minutes: 4 Oxygen Method: Room Air Datetime: 08/16/2016 23:18 Provider Reviewed Strip: Yes Datetime: 08/16/2016 22:16 PROCEDURE TIME OUT Procedure Type: 2205 Epidural Procedure Other: Redose Datetime: 08/16/2016 21:31 Monitor Interventions for UA: IUPC Inserted Procedures: Sterile Vag Exam Datetime: 08/16/2016 21:30 Quality: Moderate Resting Tone (Palpate): Relaxed Datetime: 08/16/2016 20:00 Temperature Route: Oral Datetime: 08/16/2016 19:45 Labor/Induction: Augmentation Pain Management: Epidural Datetime: 08/16/2016 19:30 MATERNAL ASSESSMENT Level of Consciousness: Fully Conscious DTR's/Clonus: DTRs 1+ Headache: Denies Breath Sounds, Left: Clear and Equal Breath Sounds, Right: Clear and Equal Nausea/Vomiting: Denies RUQ Epigastric Pain: Denies Datetime: 08/16/2016 18:02 Vaginal Bleeding: Normal Show Cervix, Consistency: Soft Cervix, Position: Posterior Datetime: 08/16/2016 15:19 PATIENT CARE IV/Blood Work: IV Bolus Given ml @ 500 Datetime: 08/16/2016 15:12 I/O Interventions: Rosas Cath Inserted Datetime: 08/16/2016 12:18 Membrane Status: Ruptured Membranes Rupture Method: Artificial Amniotic Fluid Color: Clear Amniotic Fluid Amount: Scant Datetime: 08/16/2016 08:36 Procedure Verify: Correct Patient Identity; Accurate Procedure Consent Form; Agreement on Procedure to be Done; Correct Patient Position; Safety Precautions Based on Patient History or Medication Use Datetime: 08/16/2016 08:30 Comments: FHR 140s while epidural being placed Datetime: 08/16/2016 06:15 Medications: Cervical Ripening Datetime: 08/16/2016 05:41 Monitor Interventions for FHR: Ultrasound Adjusted Datetime: 08/16/2016 03:59 Hygiene: Shower Datetime: 08/15/2016 21:30 Teaching Comments: IVF Datetime: 08/15/2016 20:40 Cervical Ripening Agents: Cervidil Datetime: 08/15/2016 20:30 Unit Routine: Call Levy
--- NOTE | 2016-08-20 07:20 | DISCHARGE SUMMARY ---
DATE OF ADMISSION: 08/15/2016 DATE OF DISCHARGE: 08/19/2016 DIAGNOSES ON ADMISSION 1. A 25-year-old, G1, P0 with a 41-week 2-day intrauterine . 2. Cervix remote from delivery. 3. Gestational hypertension. DIAGNOSES ON DISCHARGE 1. A 25-year-old, G1, P1-0-0-1 status post primary delivery on 2016 secondary to failure to dilate and descend. 2. Normal recovery. BRIEF HISTORY: This is a patient at [facility] whom we have been seeing throughout her entire course. Patient's has been complicated by gestational hypertension especially in the face of right upper quadrant pain. Preeclampsia was ruled out at 38 weeks' gestation. Patient was admitted to the hospital on 08/15/2016 for post dates cervical ripening. She was given Cervidil and later Pitocin for augmentation. Patient was noted to have slow progress in her labor. Patient's progress only got to 8 cm dilatation, 100% effacement, and +1 station. Due to failure to dilate and descend, patient underwent a primary delivery. She delivered a viable male infant at 0436 hours with Apgars of 8 and 9 at one and five minutes respectively. He weighed 4552 grams or 10 pounds 0.6 ounces. EBL was 1200 mL. Patient's postoperative course has been unremarkable. She is ambulating and tolerating a regular diet. She is urinating without difficulty and her pain is controlled with oral medications including ibuprofen, Tylenol, and oxycodone. Patient has a wound VAC, which is working quite nicely. Patient will be discharged to home on postoperative day #2, 08/19/2016. Patient has been given instructions to take her acetaminophen and ibuprofen primarily, with oxygen for breakthrough pain. She is not to engage in any heavy lifting, specifically anything more than the baby's weight. Showering is fine at this point, but I would hesitate to let her take a bath at this point in time. I have given patient instructions to call should she have any worsens fevers, chills, abdominal pain, or vaginal bleeding. She is to see us at [facility] in 2 weeks for an incision check. With respect to the Prevena wound VAC, I would like her to call our office tomorrow to make an appointment for removal on Thursday. If, however, this is not amenable to her, she may return on Thursday, and I will be director of retention and happy to remove it for her at that time. JOB #: [id number] EXT JOB #:[id number] MOLLY
== END 2016-08-19 18:20 | disposition home or self-care (01) | DRG 766 ==
LOC: OB 19:02 → OBSVTOIN 19:10
PROVIDERS: ADMIT Obstetrics & Gynecology; ATTEND Obstetrics & Gynecology
PROC: 10D00Z1 Extraction of Products of Conception, Low, Open Approach (ICD-10-PCS; principal; 2016-08-15)
PROC: 3E0P7GC Introduction of Other Therapeutic Substance into Female Reproductive, Via Natural or Artificial Opening (ICD-10-PCS; 2016-08-15)
PROC: 10907ZC Drainage of Amniotic Fluid, Therapeutic from Products of Conception, Via Natural or Artificial Opening (ICD-10-PCS; 2016-08-15)
DX: O13.4 Gestational [pregnancy-induced] hypertension without significant proteinuria, complicating childbirth (principal); O62.0 Primary inadequate contractions; O64.8XX0 Obstructed labor due to other malposition and malpresentation, not applicable or unspecified; O66.2 Obstructed labor due to unusually large fetus; O69.89X0 Labor and delivery complicated by other cord complications, not applicable or unspecified; O48.0 Post-term pregnancy; Z3A.41 41 weeks gestation of pregnancy; Z37.0 Single live birth
CPT/HCPCS: 36415; 51701; 85025

== ENCOUNTER 2016-08-29 16:11 | Outpatient (CLI) | payer OTHER ==
[2016-08-29 16:55] LABS: CREATININE 0.7 mg/dL (0.4-1.0); URIC ACID 4.8 mg/dL (2.6-7.2)
[2016-08-29 16:58] LABS: BASOPHILS # (AUTO) 0.1 10^3/uL (0.0-0.1); BASOPHILS % (AUTO) 0.7 %; EOSINOPHILS # (AUTO) 0.1 10^3/uL (0.0-0.7); EOSINOPHILS % (AUTO) 1.2 %; HCT - HEMATOCRIT 35.9 % (37.0-47.0); HGB - HEMOGLOBIN 11.8 g/dL (12.0-16.0); LYMPHOCYTES # (AUTO) 1.8 10^3/uL (1.5-3.5); LYMPHOCYTES % (AUTO) 15.6 %; MEAN CORPUSCULAR HEMOGLOBIN 30.2 pg (27.0-31.0); MEAN CORPUSCULAR HGB CONC 32.8 g/dL (32.0-36.0); MEAN CORPUSCULAR VOLUME 92.1 fL (81.0-99.0); MONOCYTES # (AUTO) 0.5 10^3/uL (0.0-1.0); MONOCYTES % (AUTO) 3.9 %; NEUTROPHILS % (AUTO) 78.6 %; RED CELL DISTRIBUTION WIDTH 15.2 % (12.0-15.0); UNCORRECTED WHITE BLOOD COUNT 11.5 x10^3/uL; WHITE BLOOD COUNT 11.5 x10^3/uL (4.8-10.8)
[2016-08-29] MEDS ORDERED: NIFEdipine ER 30 MG TABLET PO ONE (17:09)
[2016-08-29 18:02] VITALS: BP 135/88
--- NOTE | 2016-08-29 18:14 | Labor Flowsheet ---
Labor Flowsheet Datetime Report Generated by CPN: 08/29/2016 18:14 Datetime: 08/29/2016 18:01 VITAL SIGNS NBP Sys/Sally/Mean (mmHg): 135 : 88 : 98 Pulse: 68 Datetime: 08/29/2016 16:20 SpO2 (%): 100 Temperature (F): 97.2 Temperature (C): 36.2 Temperature (C): 36.2 Datetime: 08/17/2016 04:36 Stage of : Datetime: 08/17/2016 04:25 ASSESSMENT A Monitor Mode: Doppler FHR Baseline Rate : 154 Datetime: 08/17/2016 04:10 Communication Comments: OR team in hospital. To OR via bed with circulating RN and Dr. Caro. Datetime: 08/17/2016 04:04 LaborFlag: Labor Datetime: 08/17/2016 04:00 UTERINE ACTIVITY Monitor Mode: Internal Frequency (min): 2-5 Pattern: Normal: <= 5 Contractions in 10 Minutes Resting Tone IUP (mmHg): 25 Intensity IUP (mmHg): 40-60 FHR Baseline Changes: No Baseline Change Variability: Moderate 6-25 bpm Accelerations: 10X10 Decelerations: None Category: Category I PAIN Pain Scale: 10 Pain Presence: Constant Pain Location: Right Hip Pain Goal: 4 Pain Relief Measures: Epidural Given Datetime: 08/17/2016 03:25 Medication Comments: Epidural infusion stopped per Dr Caro's order. Datetime: 08/17/2016 03:15 TEACHING Instructional Method: Verbal; Written; Patient Instructed; Family/Support Person Instructed; Verbal ized Understanding Plan of Care: Plan of Care Discussed; C/S Delivery Datetime: 08/17/2016 03:14 Patient Care Comments: concentrated urine, 60ml Datetime: 08/17/2016 03:11 COMMUNICATION Communication: RN at Bedside; Provider at Bedside Provider Notified (Name): Giem Notification Reason: Status Update; Status; Labor Status; Uterine Activity; Pain Datetime: 08/17/2016 03:09 MEDICATIONS Pitocin (milliunits): Discontinued Datetime: 08/17/2016 03:05 Analgesics/Sedatives: Fentanyl (mcg) @ (Annotations: 50mcg given for 1010 pain; no relief from epi dural; still in pain on R hip/R groin/R lower back. Dr Caro aware. ) Datetime: 08/17/2016 03:00 Duration (sec): 60-100 Pitocin Checklist: At Least 1 Acceleration of 15 bpm x 15 Seconds in 30 Minutes or Adequate Variabi lity; No More than 1 Late Deceleration Occurred in Past 30 Minutes; No More than 2 Variable Decelerat ions > 60 Seconds in Duration and decreasing >60 bpm in 30 minutes; No More than 5 Uterine Contractio ns in 10 Minutes for any 20 Minute Interval; IUPC Resting Tone less than 25 mmHg VAGINAL EXAM Dilatation (cm): 7.0 (Annotations: 2cm on L side, 1cm on R side, molding, not well applied cervix. ) Effacement (%): 90 (Annotations: Some edema on mom's L side of cervix. ) Station: 0 Exam by: RNRoselyn Mcclain Anesthesia Interview: E Anesthesia Comments: Still c/o unretractable pain on R lower side of abdomen, hip, back. Dr Caro aw are. Legs are heavy; unable to move self from side to side or up in bed. Datetime: 08/17/2016 02:43 Contraction Comments: IUPC flushed Datetime: 08/17/2016 02:39 Patient Position/Activity: Left Lateral Datetime: 08/17/2016 02:38 Vaginal Exam Comments: molding Datetime: 08/17/2016 02:27 Epidural Positioning: Sitting Epidural Procedure: Test Dose Datetime: 08/17/2016 02:00 Respirations: 24 Datetime: 08/17/2016 01:46 Antiemetics/Antacids: Zofran (mg) @ 4 Datetime: 08/17/2016 01:18 Pain Assessment Comments: Dr Caro called and requested to come see pt and evaluate epidural. Datetime: 08/17/2016 01:15 Pain Coping: Requesting Pain Medication or Epidural; Crying Comfort Measures: Breathing/Relaxation; Coaching; Family Support Datetime: 08/17/2016 01:00 [place] Units (mmHg): 212 ANESTHESIA Anesthesia Plans: Epidural Anesthesia Level Check: T8- Ribs Datetime: 08/17/2016 00:00 Pain Type: Pressure Datetime: 08/16/2016 23:31 [place] UNITS (Computed) Contractions in Ten Minutes: 4 Oxygen Method: Room Air Datetime: 08/16/2016 23:18 Provider Reviewed Strip: Yes Datetime: 08/16/2016 22:16 PROCEDURE TIME OUT Procedure Type: 2205 Epidural Procedure Other: Redose Datetime: 08/16/2016 21:31 Monitor Interventions for UA: IUPC Inserted Procedures: Sterile Vag Exam Datetime: 08/16/2016 21:30 Quality: Moderate Resting Tone (Palpate): Relaxed Datetime: 08/16/2016 20:00 Temperature Route: Oral Datetime: 08/16/2016 19:45 Labor/Induction: Augmentation Pain Management: Epidural Datetime: 08/16/2016 19:30 MATERNAL ASSESSMENT Level of Consciousness: Fully Conscious DTR's/Clonus: DTRs 1+ Headache: Denies Breath Sounds, Left: Clear and Equal Breath Sounds, Right: Clear and Equal Nausea/Vomiting: Denies RUQ Epigastric Pain: Denies Datetime: 08/16/2016 18:02 Vaginal Bleeding: Normal Show Cervix, Consistency: Soft Cervix, Position: Posterior Datetime: 08/16/2016 15:19 PATIENT CARE IV/Blood Work: IV Bolus Given ml @ 500 Datetime: 08/16/2016 15:12 I/O Interventions: Rosas Cath Inserted Datetime: 08/16/2016 12:18 Membrane Status: Ruptured Membranes Rupture Method: Artificial Amniotic Fluid Color: Clear Amniotic Fluid Amount: Scant Datetime: 08/16/2016 08:36 Procedure Verify: Correct Patient Identity; Accurate Procedure Consent Form; Agreement on Procedure to be Done; Correct Patient Position; Safety Precautions Based on Patient History or Medication Use Datetime: 08/16/2016 08:30 Comments: FHR 140s while epidural being placed Datetime: 08/16/2016 06:15 Medications: Cervical Ripening Datetime: 08/16/2016 05:41 Monitor Interventions for FHR: Ultrasound Adjusted Datetime: 08/16/2016 03:59 Hygiene: Shower Datetime: 08/15/2016 21:30 Teaching Comments: IVF Datetime: 08/15/2016 20:40 Cervical Ripening Agents: Cervidil Datetime: 08/15/2016 20:30 Unit Routine: Call Levy
== END 2016-08-29 18:10 | disposition home or self-care (01) ==
LOC: WFO 16:11 → OB 16:12 → WFO 18:10
PROVIDERS: ATTEND Obstetrics & Gynecology
DX: O16.5 Unspecified maternal hypertension, complicating the puerperium (principal)
CPT/HCPCS: 36415; 82565; 82570; 83615; 84156; 84450; 84550; 85025; 99211; A9270